=== PATIENT | female | born 1945 | race Two or more races ===

== ENCOUNTER 2025-02-07 11:03 | Outpatient (AMB) | payer OTHER, MEDICAID, SELFPAY ==
--- NOTE | 2025-02-07 11:21 | GSCOFFNT_ITS ---
[facility]s - [facility] 02/07/25 11:22 Height 1.63 m Height Method Stated Weight 84.935 kg Weight Measurement Method Standing Scale BMI 32.1 BP 141/85 H Blood Pressure Source Automatic Cuff Blood Pressure Location Left Upper Arm Position Sitting Respiration 19 Pulse 82 Pulse Source Monitor Temp 97.7 F Temp Source Temporal Artery Scan Pulse Oximetry (%) 95 Oxygen Delivery Method Room Air Med/Allergies Allergies & Medications Allergies No Known Allergies Allergy (Verified 02/07/25 11:23) Medication Reconciliation lisinopril 40 mg tablet 40 mg PO BID 11/17/18 [History Confirmed 02/07/25] metformin 1,000 mg tablet 1,000 mg PO BID 11/17/18 [History Confirmed 02/07/25] omeprazole 20 mg capsule,delayed release 20 mg PO QDAY 11/17/18 [History Confirmed 02/07/25] oxybutynin chloride 5 mg tablet 5 mg PO QDAY 11/17/18 [History Confirmed 02/07/25] sertraline 100 mg tablet 100 mg PO QDAY 11/17/18 [History Confirmed 02/07/25] amlodipine 10 mg tablet 10 mg PO QDAY 02/10/21 [History Confirmed 02/07/25] duloxetine 30 mg capsule,delayed release 30 mg PO BID 02/10/21 [History Confirmed 02/07/25] gabapentin 300 mg capsule 300 mg PO TID 02/10/21 [History Confirmed 02/07/25] hydrochlorothiazide 25 mg tablet 25 mg PO QDAY 02/10/21 [History Confirmed 02/07/25] potassium chloride 10 mEq capsule,extended release 10 meq PO QDAY 02/10/21 [History Confirmed 02/07/25] hydrocortisone 1 % topical cream 1 applic topical BID PRN 02/07/25 [History Confirmed 02/07/25] lidocaine 5 % topical cream 1 applic topical BID PRN pain #30 grams 02/07/25 [Rx] lidocaine 5 % topical patch 1 patch topical QDAY 02/07/25 [History Confirmed 02/07/25] MA Intake Visit Data Collection New Patient or Established: New Patient (never been to [facility]) Seen by Clinical Staff ONLY (RN/MA): No Reason for Visit:: RECTAL BURNING/TINGLING Pain Present Currently: No Pain scale:: 0 Compliance Technician Required: Yes PCP or OBGYN visit in last 3 months: Yes Hx Now: No Do You Feel Safe at Home: Yes Authorities Contacted: N/A Smoking Status Smoking Status: Never smoker Immunization / Flu Flu Vaccine in the Last 12 Months: No Flu Vaccine Exclusion Criteria: Refused by Patient Past Medical History Past Medical History NEUROLOGIC: Negative Neurological Disorders or Seizures CARDIAC: Positive Peripheral Vascular Disease, Hypercholesterolemia and Hypertension; Negative Cardiac Disorders or Congestive Heart Failure RESPIRATORY: Negative Chronic Obstructive Pulmonary Disease (COPD) GASTROINTESTINAL: Positive Gastroesophageal Reflux Disease; Negative Gastrointestinal Disorders or Hepatitis GENITOURINARY: Negative Genitourinary Disorders or Renal Disease REPRODUCTIVE: Positive Previous Pregnancies ENDOCRINE: Positive Endocrine Disorders and Diabetes Mellitus Type 2; Negative Diabetes Mellitus Type 1 HEMATOLOGIC: Negative Blood Disorders PSYCHO/SOCIAL: Positive Depression and Anxiety OTHER HISTORY: Negative Hospitalization, Shingles, Falls, Blood Transfusions, Blood Transfusion Reaction, Anesthesia Reactions, Chemotherapy, Radiation Therapy, MRSA or Cancer Surgical History SURGICAL: Positive Abdominal Surgery, Hysterectomy and Tubal Ligation; Negative Cardiac Surgery or Endocrine Surgery Social History SMOKING STATUS: Smoking status: Never smoker ALCOHOL: Alcohol Intake: Never HOUSING: Housing: House [facility] HPI Narrative HISTORY OF PRESENT ILLNESS I, Edith García, have obtained verbal consent from the patient, to be recorded during this encounter which may include, but not limited to, medical history, examination, treatment plans, and relevant health information.? Patient was informed that recording will be read and reviewed by myself before inclusion in the medical chart. The patient is a 61-year-old female who presents for evaluation of anal burning. Spoke to pt with in-person risk lead She has been experiencing discomfort while sitting, necessitating frequent position changes. She sought help from a supervisor insulation who recommended a donut cushion for sitting. She also consulted her primary care physician, who referred her to this clinic. She describes a persistent burning sensation in her anal area, similar to the feeling after consuming spicy food. Despite maintaining cleanliness with wipes, the irritation persists and has spread to the right side of her labia. She reports a sensation of something emerging from her anus during bowel movements or urination, likening it to worms. She is seeking medication to alleviate these symptoms. Her bowel movements are normal without any straining or diarrhea, and she reports no blood in her stool. She has not recently undergone any stool studies Her last colonoscopy was in 2020 and she was found to have two tubular adenoma <1cm. She has not tried sitz baths due to recent knee surgery. She also reports an itching sensation in her anus. She does not experience significant pain during bowel movements. She was prescribed patches and creams, which provided some relief from the 1% hydrocortisone but did not completely resolve her symptoms. PMH: HTN, DMII (checks regularly, finger sticks around 100), HLD, hypertriglyceridemia PSHx: Knee surgery, cholecystectomy, tubal ligation Meds: Amlodipine, duloxetine, gabapentin, HCTZ, hydrocortisone 1%, lisinopril, metformin, omeprazole, oxybutynin, KCl, sertraline Allergies: NKDA Family hx: no first degree relatives with malignancy ROS Review of Systems Systems Reviewed: All systems reviewed, normal except as documented Objective/Exam General General Appearance: alert, cooperative and well groomed Resp Respiratory exam: Absent respiratory distress Rectal Rectal exam: Present other (Small skin tag noted on the outside of the anus. Int ernal hemorrhoids seen on anoscopy) External exam: Present other (mild erythema at the right posterior labia) Assessment & Plan Diagnosis / Problem List (1) Perianal pruritus: Status: Acute Assessment & Plan: Reports a burning sensation in the anal area, which has been persistent and uncomfortable. Examination revealed small external skin tags and internal hemorrhoids, along with mild redness towards the vagina. A higher dose of hydrocortisone cream was discussed but not recommended for long-term use. A prescription for lidocaine cream will be sent to the pharmacy as pt has run out. Pt was advised to use a sitz bath device, which can be purchased at any drug store, to help alleviate symptoms and a handout was provided for detailed information. A stool test has been ordered to check for parasites. Advised to inform when the stool sample is completed so that the results can be reviewed promptly. Plan: F/u stool O&P F/u in 6 weeks Orders: Orders Ova & Parasites, Conc, Smear* 1 Week L29.0 - Pruritus ani Advanced Care Planning Advance care planning discussed with:: patient Office Procedures GNS Level of Care Nursing/Assessment Patient Status: Initial/New Patient Nursing Assessment/Reassesment: Medication Reconciliation, Update PMH in EMR and Vital Signs Coordination of Care: Complex Care and Chronic Disease 1-5, Consent,records obtained, informed consent, Education Simp Pt/Fam, 1 Ins Authorization, Lab and Imaging orders, Results/Orders obtained and Staff clarify orders Special Needs: Language special needs New Patient Charge New Patient Point Assignment: [id number] 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 Level 4 ([id number]) Patient Portal Questionaires Social History Living Situation History Housing: House Tobacco History Smoking Status: Never smoker Alcohol History Alcohol Intake: Never Domestic Abuse History Do You Feel Safe at Home: Yes Review of Systems Report any current symptoms Only answer those that you have currently: Past Medical History Past Medical History Have you ever been diagnosed with any of the following: Neurological Problems Seizures: No Cardiology Problems Peripheral Vascular Disease: Yes Hypercholesterolemia: Yes Congestive Heart Failure: No Hypertension: Yes Respiratory Problems Chronic Obstructive Pulmonary Disease (COPD): No Stomache/Intestinal Problems Hepatitis: No Gastroesophageal Reflux Disease: Yes Genital/Urinary Problems Renal Disease: No Reproductive Problems Previous Pregnancies: Yes Endocrine Problems Diabetes Mellitus Type 1: No Diabetes Mellitus Type 2: Yes Psychologic Problems Depression: Yes Anxiety: Yes Other Problems Hospitalization: No Shingles: No Falls: No Blood Transfusions: No Blood Transfusion Reaction: No Anesthesia Reactions: No Chemotherapy: No Radiation Therapy: No MRSA: No Cancer: No Surgical History Hysterectomy: Yes
[2025-02-07 11:22] VITALS: BP 141/85; PULSE 82; RESP 19; TEMP 36.5; O2SAT 95; BMI 32.1
== END 2025-02-07 12:08 | disposition home or self-care (01) ==
LOC: HODSRG 11:03
PROVIDERS: PCP Family Medicine; Referring Provider Family Medicine; Supervising Provider Surgery; Visit Provider Surgery
DX: L29.0 Pruritus ani (principal); K64.8 Other hemorrhoids; I10 Essential (primary) hypertension
CPT/HCPCS: 99204; G0463

== ENCOUNTER → 2025-02-08 | Outpatient (CLI) | payer OTHER, MEDICAID, SELFPAY ==
[2025-02-19 15:36] LABS: Source STOOL
== END | disposition home or self-care (01) ==
LOC: SLDO 14:06
PROVIDERS: PCP Surgery; Referring Provider Surgery; Visit Provider Surgery
DX: L29.0 Pruritus ani (principal)
CPT/HCPCS: 87177; 87209

== ENCOUNTER 2025-03-25 10:18 | Outpatient (AMB) | payer OTHER, MEDICAID, SELFPAY ==
[2025-03-25 10:59] VITALS: BP 126/83; PULSE 73; RESP 18; TEMP 36.4; O2SAT 93; BMI 33.3
--- NOTE | 2025-03-25 10:59 | GSCOFFNT_ITS ---
Vital Signs - [facility] 03/25/25 10:59 Height 1.63 m Height Method Measured Weight 88.677 kg Weight Measurement Method Standing Scale BMI 33.3 BP 126/83 Blood Pressure Source Automatic Cuff Blood Pressure Location Left Upper Arm Position Sitting Respiration 18 Pulse 73 Pulse Source Monitor Temp 97.6 F Temp Source Temporal Artery Scan Pulse Oximetry (%) 93 L Oxygen Delivery Method Room Air Med/Allergies Allergies & Medications Allergies No Known Allergies Allergy (Verified 03/25/25 11:00) Medication Reconciliation lisinopril 40 mg tablet 40 mg PO BID 11/17/18 [History Confirmed 03/25/25] metformin 1,000 mg tablet 1,000 mg PO BID 11/17/18 [History Confirmed 03/25/25] omeprazole 20 mg capsule,delayed release 20 mg PO QDAY 11/17/18 [History Confirmed 03/25/25] oxybutynin chloride 5 mg tablet 5 mg PO QDAY 11/17/18 [History Confirmed 03/25/25] sertraline 100 mg tablet 100 mg PO QDAY 11/17/18 [History Confirmed 03/25/25] amlodipine 10 mg tablet 10 mg PO QDAY 02/10/21 [History Confirmed 03/25/25] duloxetine 30 mg capsule,delayed release 30 mg PO BID 02/10/21 [History Confirmed 03/25/25] gabapentin 300 mg capsule 300 mg PO TID 02/10/21 [History Confirmed 03/25/25] hydrochlorothiazide 25 mg tablet 25 mg PO QDAY 02/10/21 [History Confirmed 03/25/25] potassium chloride 10 mEq capsule,extended release 10 meq PO QDAY 02/10/21 [History Confirmed 03/25/25] hydrocortisone 1 % topical cream 1 applic topical BID PRN 02/07/25 [History Confirmed 03/25/25] lidocaine 5 % topical cream 1 applic topical BID PRN pain #30 grams 02/07/25 [Rx Confirmed 03/25/25] lidocaine 5 % topical patch 1 patch topical QDAY 02/07/25 [History Confirmed 03/25/25] MA Intake Visit Data Collection New Patient or Established: Established Patient (seen at [facility] within 3 years) Seen by Clinical Staff ONLY (RN/MA): No Reason for Visit:: RECTAL BURNING Pain Present Currently: No Pain Scale Used: Cook-Pryor/Numerical 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: 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 PCP or OBGYN visit in last 3 months: Yes Hx Now: No Do You Feel Safe at Home: Yes Authorities Contacted: N/A Smoking Status Smoking Status: Never smoker Immunization / Flu Flu Vaccine in the Last 12 Months: Yes Flu Vaccine Exclusion Criteria: Already Received Past Medical History Past Medical History NEUROLOGIC: Negative Neurological Disorders or Seizures CARDIAC: Positive Peripheral Vascular Disease, Hypercholesterolemia and Hypertension; Negative Cardiac Disorders or Congestive Heart Failure RESPIRATORY: Negative Chronic Obstructive Pulmonary Disease (COPD) GASTROINTESTINAL: Positive Gastroesophageal Reflux Disease; Negative Gastrointestinal Disorders or Hepatitis GENITOURINARY: Negative Genitourinary Disorders or Renal Disease REPRODUCTIVE: Positive Previous Pregnancies ENDOCRINE: Positive Endocrine Disorders and Diabetes Mellitus Type 2; Negative Diabetes Mellitus Type 1 HEMATOLOGIC: Negative Blood Disorders PSYCHO/SOCIAL: Positive Depression and Anxiety OTHER HISTORY: Negative Hospitalization, Shingles, Falls, Blood Transfusions, Blood Transfusion Reaction, Anesthesia Reactions, Chemotherapy, Radiation Therapy, MRSA or Cancer Surgical History SURGICAL: Positive Abdominal Surgery, Hysterectomy and Tubal Ligation; Negative Cardiac Surgery or Endocrine Surgery Social History SMOKING STATUS: Smoking status: Never smoker ALCOHOL: Alcohol Intake: Never HOUSING: Housing: House [facility] HPI Narrative HISTORY OF PRESENT ILLNESS I, Edith García, have obtained verbal consent from the patient, to be recorded during this encounter which may include, but not limited to, medical history, examination, treatment plans, and relevant health information.? Patient was informed that recording will be read and reviewed by myself before inclusion in the medical chart. The patient is a female who presents for a follow-up of rectal burning. She reports a slight improvement in her condition but continues to experience discomfort due to a persistent sensation of parasites. This issue began around the end of 10/2024 and has been a constant source of distress. The sensation is not localized to the rectal area but is felt throughout her body. She has attempted various home remedies found on [employer] to alleviate the symptoms. She is seeking a prescription for a medication that can cleanse her system and eliminate the perceived parasites. She did not start any new medication in 10/2024 or 11/2024 so there is no obvious inciting factor for these symptoms. Pt does report that the perianal burning improved with topical hydrocortisone and lidocaine. After last visit she did a stool O&P test which was negative ROS Review of Systems Systems Reviewed: All systems reviewed, normal except as documented Objective/Exam General General Appearance: alert, cooperative and well groomed Resp Respiratory exam: Absent respiratory distress Assessment & Plan Diagnosis / Problem List (1) Perianal pruritus: Status: Acute Assessment & Plan: Stool test results were negative for parasites. Reports a persistent sensation of parasites throughout her body since the end of October 2024, which is not constant but bothers her. Unfortunately I am not aware of any remedy for this sensation but encouraged pt to follow up with her PCP. All questions were answered and pt is agreeable with this plan Advanced Care Planning Advance care planning discussed with:: other Office Procedures GNS Level of Care Nursing/Assessment Patient Status: Established Patient Nursing Assessment/Reassesment: Medication Reconciliation, Update PMH in EMR and Vital Signs Coordination of Care: Complex Care and Chronic Disease 1-5, Education Complex Pt/Fam, Consent,records obtained, informed consent, Results/Orders obtained and Staff clarify orders Special Needs: Language special needs Established Patient Charge Established Patient Point Assignment: 95 Established Patient Point Charge: EP Level 3 (80-115) Patient Portal Questionaires Social History Living Situation History Housing: House Tobacco History Smoking Status: Never smoker Alcohol History Alcohol Intake: Never Domestic Abuse History Do You Feel Safe at Home: Yes Review of Systems Report any current symptoms Only answer those that you have currently: Past Medical History Past Medical History Have you ever been diagnosed with any of the following: Neurological Problems Seizures: No Cardiology Problems Peripheral Vascular Disease: Yes Hypercholesterolemia: Yes Congestive Heart Failure: No Hypertension: Yes Respiratory Problems Chronic Obstructive Pulmonary Disease (COPD): No Stomache/Intestinal Problems Hepatitis: No Gastroesophageal Reflux Disease: Yes Genital/Urinary Problems Renal Disease: No Reproductive Problems Previous Pregnancies: Yes Endocrine Problems Diabetes Mellitus Type 1: No Diabetes Mellitus Type 2: Yes Psychologic Problems Depression: Yes Anxiety: Yes Other Problems Hospitalization: No Shingles: No Falls: No Blood Transfusions: No Blood Transfusion Reaction: No Anesthesia Reactions: No Chemotherapy: No Radiation Therapy: No MRSA: No Cancer: No Surgical History Hysterectomy: Yes
== END 2025-03-25 10:59 | disposition home or self-care (01) ==
LOC: HODSRG 10:18
PROVIDERS: PCP Family Medicine; Referring Provider Family Medicine; Supervising Provider Surgery; Visit Provider Surgery
DX: L29.9 Pruritus, unspecified (principal)
CPT/HCPCS: 99213; G0463